=== PATIENT | female | born 1995 | race African-American/Black ===

== ENCOUNTER 2018-04-16 23:22 | Inpatient (IN) ==
[2018-04-17 00:03] LABS: Apearance,Urine CLEAR (Clear); Bacteria,Urine Occasional /HPF (Few); Bilirubin,Urine Negative (Negative); Blood, Urine Small mg/dL (Negative); Glucose,Urine (UA) Negative (Negative); Ketones,Urine Negative (Negative); Mucus,Urine Occasional /LPF (Occasional); Nitrite,Urine Negative (Negative); Protein,Urine Negative; RBC,Urine <1 /HPF (0-4); Squamous Epithelial Cell,Urine Occasional /HPF (0-10); Urine Color Yellow (Yellow); Urine Specific Gravity 1.013 (1.001-1.035); Urine Urobilinogen < 2.0 EU/DL (0.2-1.0); WBC,Urine 1 /HPF (0-6)
[2018-04-17] MEDS ORDERED: BUTORPHANOL 2 MG/ML VIAL IM ONE (00:35)
[2018-04-17] MEDS ORDERED: PROMETHAZINE 25 MG/1 ML VIAL IM ONE (00:35)
[2018-04-17] MEDS ORDERED: MEPERIDINE 50 MG/1 ML VIAL IV PRN (06:33)
[2018-04-17] MEDS ORDERED: ONDANSETRON 4 MG/2 ML VIAL IV PRN (06:33)
[2018-04-17] MEDS ORDERED: BUTORPHANOL 2 MG/ML VIAL IV PRN (06:33)
[2018-04-17] MEDS ORDERED: OXYTOCIN/LR 20 UNIT/1,000 ML BAG IV SCH (07:00)
[2018-04-17] MEDS ORDERED: LACTATED RINGERS 1,000 ML IV SCH (07:00)
[2018-04-17 07:13] LABS: Basophils % 0.2 % (0.0-0.8); Eosinophils # 0.2 10*3/uL (0.0-0.87); Eosinophils % 1.5 % (0.00-10.9); Hematocrit 34.8 VOL% (35.7-47.0); Hemoglobin 10.6 GM/DL (12.0-16.0); Immature Granulocytes % 0.8 %; Immature Granulocytes Absolute 0.09 #; Lymphocytes # 1.8 10*3/uL (1.4-4.0); Mean Corpuscular HGB Conc 30.5 GM/DL (32-36); Mean Corpuscular Hemoglobin 25 PG (27-34); Mean Corpuscular Volume 80.4 FL (87-102); Mean Platelet Volume 10.2 FL (9.6-12.0); Monocytes % 8.9 % (1.7-12.7); Neutrophils # 8.1 10*3/uL (1.4-7.4); Neutrophils % 72.6 % (38.7-73.9); Platelet Count 285 T/CUMM (130-400); Red Blood Count 4.33 MC/CUMM (3.8-5.5); Red Cell Distribution Width 14.9 % (9.3-17.3); White Blood Count 11.1 T/CUMM (4-12)
[2018-04-17] MEDS ORDERED: NALOXONE 0.4 MG/ML VIAL IV PRN (07:27)
[2018-04-17] MEDS ORDERED: diphenhydrAMINE 50 MG/1 ML VIAL IV PRN ×2 (07:27)
[2018-04-17] MEDS ORDERED: hydrOXYzine HCL 25 MG/1 ML VIAL IM PRN (07:27)
[2018-04-17] MEDS ORDERED: ePHEDrine 50 MG/ML AMP IV PRN (07:27)
[2018-04-17] MEDS ORDERED: LACTATED RINGERS 1,000 ML IV ONE (07:29)
[2018-04-17] MEDS ORDERED: FAMOTIDINE 20 MG/2 ML VIAL IV ONE (07:29)
[2018-04-17] MEDS ORDERED: CITRIC ACID/SODIUM CITRATE 30 ML UDCUP PO ONE (07:29)
[2018-04-17] MEDS ORDERED: PENICILLIN G POTASSIUM INJ 5,000,000 UNIT in SODIUM CHLORIDE 0.9% 100 ML IV ONE (07:30)
[2018-04-17 07:35] LABS: Alanine Aminotransferase 12 U/L (13-56); Albumin 2.5 G/DL (3.4-5.0); Alkaline Phosphatase 132 U/L (45-117); Aspartate Amino Transferase 13 U/L (0-37); Bilirubin,Total < 0.39 MG/DL (0.2-1.0); Blood Urea Nitrogen 6 MG/DL (7-18); Calcium 9.1 MG/DL (8.5-10.1); Glucose 98 MG/DL (74-106); Osmolality,Calculated 270.8 MOS/KG (273-304); Sodium 137 MMOL/L (136-145); Total Protein 7.6 G/DL (6.4-8.3)
[2018-04-17 07:54] LABS: Hepatitis B Surface Ag Quant < 0.10 Index; Hepatitis B Surface Ag Result Negative (Negative)
[2018-04-17] MEDS: fentaNYL 2 MCG/ROPIV 0.2% EPID 100 ML EPIDURAL SCH ×2 (08:20→17:31)
[2018-04-17 08:23] LABS: HIV Antigen/Antibody Result Nonreactive (Nonreactive); Rubella Antibody IgG 110.4 IU/ML
[2018-04-17 11:16] LABS: Apearance,Urine CLEAR (Clear); Bilirubin,Urine Negative (Negative); Blood, Urine Small mg/dL (Negative); Glucose,Urine (UA) Negative (Negative); Ketones,Urine 5 mg/dL (Negative); Mucus,Urine Occasional /LPF (Occasional); Nitrite,Urine Negative (Negative); Protein,Urine Negative; RBC,Urine 1 /HPF (0-4); Urine Color Yellow (Yellow); Urine Specific Gravity 1.017 (1.001-1.035); Urine Urobilinogen < 2.0 EU/DL (0.2-1.0); WBC,Urine <1 /HPF (0-6)
[2018-04-17] MEDS ORDERED: PENICILLIN G POTASSIUM INJ 2,500,000 UNIT in SODIUM CHLORIDE 0.9% 100 ML IV SCH (12:00)
[2018-04-17] MEDS ORDERED: LIDOCAINE 1% 50 ML VIAL ONE (17:17)
[2018-04-17] MEDS ORDERED: miSOPROStol 200 MCG TABLET ONE (17:17)
[2018-04-17] MEDS ORDERED: METHYLERGONOVINE 0.2 MG/1 ML AMP ONE (17:18)
[2018-04-17] MEDS ORDERED: CARBOPROST TROMETHAMINE 250 MCG/ML AMP IM ONE (17:18)
[2018-04-17 18:12] LABS: Cord Arterial Blood HCO3 18.6 MMOL/L
[2018-04-17 18:15] LABS: Cord Venous Blood HCO3 21.2 MMOL/L; Cord Venous Blood PCO2 39.8 MMHG; Cord Venous Blood PO2 46.1
[2018-04-17] MEDS ORDERED: IBUPROFEN 800 MG TABLET PO ONE (20:29)
[2018-04-17] MEDS ORDERED: BENZOCAINE 20%/MENTHOL 0.5% SPRAY 56 GM CAN TOP PRN (22:47)
[2018-04-18] MEDS: ACETAMINOPHEN/CODEINE 300-30 MG TABLET PO PRN ×2 (00:01→17:43)
[2018-04-18 05:45] LABS: Basophils % 0.2 % (0.0-0.8); Eosinophils # 0.1 10*3/uL (0.0-0.87); Hemoglobin 9.9 GM/DL (12.0-16.0); Immature Granulocytes % 0.6 %; Immature Granulocytes Absolute 0.08 #; Lymphocytes # 1.9 10*3/uL (1.4-4.0); Lymphocytes % 13.9 % (21.3-54.2); Mean Corpuscular HGB Conc 30.9 GM/DL (32-36); Mean Corpuscular Hemoglobin 25 PG (27-34); Mean Platelet Volume 10.3 FL (9.6-12.0); Monocytes # 1.6 10*3/uL (0.11-0.8); Monocytes % 12.1 % (1.7-12.7); Neutrophils # 9.6 10*3/uL (1.4-7.4); Neutrophils % 72.2 % (38.7-73.9); Platelet Count 249 T/CUMM (130-400); Red Cell Distribution Width 14.7 % (9.3-17.3); White Blood Count 13.3 T/CUMM (4-12)
[2018-04-18] MEDS: DOCUSATE SODIUM 100 MG CAPSULE PO SCH ×2 (08:12→20:59)
[2018-04-18] MEDS: IBUPROFEN 800 MG TABLET PO PRN ×2 (11:51→22:02)
[2018-04-18] MEDS ORDERED: ALUMINUM/MAGNES/SIMETH MAX STR 30 ML UDCUP PO PRN (18:41)
[2018-04-19] MEDS ORDERED: PHENOL 1.4% THROAT SPRAY 177 ML BOTTLE PO PRN (01:44)
[2018-04-19] MEDS: BENZOCAINE/MENTHOL LOZENGE 18/BOX PO PRN ×2 (01:55→04:33)
[2018-04-19] MEDS ORDERED: DIPH/TET/ACEL PERT BOOSTER VACCINE 0.5 ML VIAL IM ONE (08:03)
[2018-04-19] MEDS ORDERED: INFLUENZA VIRUS VACCINE 0.5 ML SYRINGE IM ONE (08:04)
[2018-04-19] MEDS: DOCUSATE SODIUM 100 MG CAPSULE PO SCH (08:10)
[2018-04-19 08:29] VITALS: BP 107/58
== END 2018-04-19 13:05 | disposition home or self-care (01) | DRG 560 ==
LOC: N.LDOUT 23:22 → N.LD 23:26 → N.OB 04-17 22:06
PROVIDERS: ADMIT Obstetrics & Gynecology; ATTEND Obstetrics & Gynecology

== ENCOUNTER 2019-12-06 04:52 | Inpatient (IN) ==
[2019-12-06] MEDS ORDERED: LACTATED RINGERS 1,000 ML IV ONE ×2 (05:01→11:03)
[2019-12-06] MEDS ORDERED: ONDANSETRON 4 MG/2 ML VIAL IV PRN (05:01)
[2019-12-06] MEDS ORDERED: AMPICILLIN INJ 2,000 MG in SODIUM CHLORIDE 0.9% 100 ML IV ONE (05:03)
[2019-12-06] MEDS: LACTATED RINGERS 1,000 ML IV SCH ×2 (05:28→16:47)
[2019-12-06] MEDS: OXYTOCIN/LR 20 UNIT/1,000 ML BAG IV SCH (06:08)
[2019-12-06 06:11] LABS: Basophils % 0.3 % (0.0-0.8); Eosinophils # 0.1 10*3/uL (0.0-0.87); Eosinophils % 1.2 % (0.00-10.9); Hematocrit 32.2 VOL% (35.7-47.0); Hemoglobin 9.8 GM/DL (12.0-16.0); Immature Granulocytes % 0.6 %; Immature Granulocytes Absolute 0.07 #; Lymphocytes # 1.6 10*3/uL (1.4-4.0); Lymphocytes % 14.3 % (21.3-54.2); Mean Corpuscular HGB Conc 30.4 GM/DL (32-36); Mean Corpuscular Volume 76.5 FL (87-102); Mean Platelet Volume 10.5 FL (9.6-12.0); Monocytes % 9.7 % (1.7-12.7); Neutrophils % 73.9 % (38.7-73.9); Platelet Count 262 T/CUMM (130-400); Red Blood Count 4.21 MC/CUMM (3.8-5.5); White Blood Count 11.3 T/CUMM (4-12)
[2019-12-06 06:29] LABS: Alanine Aminotransferase 11 U/L (13-56); Albumin 2.4 G/DL (3.4-5.0); Alkaline Phosphatase 101 U/L (45-117); Aspartate Amino Transferase 12 U/L (0-37); Bilirubin,Total < 0.39 MG/DL (0.2-1.0); Blood Urea Nitrogen 7 MG/DL (7-18); Calcium 9.4 MG/DL (8.5-10.1); Estimated Glom Filtration Rate 239 ML/MIN; Glucose 88 MG/DL (74-106); Osmolality,Calculated 271.7 MOS/KG (273-304); Total Protein 7.1 G/DL (6.4-8.3)
[2019-12-06 06:35] LABS: Apearance,Urine Slightly Hazy (Clear); Bacteria,Urine Occasional /HPF (Few); Bilirubin,Urine Negative (Negative); Blood, Urine Small mg/dL (Negative); Glucose,Urine (UA) Negative (Negative); Ketones,Urine Negative (Negative); Mucus,Urine Occasional /LPF (Occasional); Nitrite,Urine Negative (Negative); Protein,Urine 30 MG/DL; RBC,Urine 2 /HPF (0-4); Renal Epithelial Cells,Urine Occasional /HPF (<1); Squamous Epithelial Cell,Urine Few /HPF (0-10); Urine Color Yellow (Yellow); Urine Urobilinogen < 2.0 EU/DL (0.2-1.0); WBC,Urine 6 /HPF (0-6)
[2019-12-06] MEDS: AMPICILLIN INJ 1,000 MG in SODIUM CHLORIDE 0.9% 100 ML IV SCH ×3 (10:21→18:48)
[2019-12-06] MEDS ORDERED: BUTORPHANOL 2 MG/ML VIAL IV PRN (10:49)
[2019-12-06] MEDS ORDERED: FAMOTIDINE 20 MG/2 ML VIAL IV ONE (11:03)
[2019-12-06] MEDS ORDERED: CITRIC ACID/SODIUM CITRATE 30 ML UDCUP PO ONE (11:03)
[2019-12-06] MEDS ORDERED: diphenhydrAMINE 50 MG/1 ML VIAL IV PRN ×2 (11:04)
[2019-12-06] MEDS ORDERED: hydrOXYzine HCL 25 MG/1 ML VIAL IM PRN (11:04)
[2019-12-06] MEDS ORDERED: NALOXONE 0.4 MG/ML VIAL IV PRN (11:04)
[2019-12-06] MEDS ORDERED: PROMETHAZINE 25 MG/1 ML VIAL IM ONE (11:04)
[2019-12-06] MEDS ORDERED: ePHEDrine 50 MG/ML VIAL IV PRN (11:04)
[2019-12-06] MEDS: fentaNYL 2 MCG/ROPIV 0.2% EPID 100 ML EPIDURAL SCH ×2 (12:22→21:22)
[2019-12-06 15:03] LABS: Apearance,Urine CLEAR (Clear); Bilirubin,Urine Negative (Negative); Blood, Urine Negative (Negative); Glucose,Urine (UA) Negative (Negative); Ketones,Urine 20 mg/dL (Negative); Mucus,Urine Occasional /LPF (Occasional); Nitrite,Urine Negative (Negative); Protein,Urine Negative; RBC,Urine 1 /HPF (0-4); Urine Color Yellow (Yellow); Urine Specific Gravity 1.025 (1.001-1.035); Urine Urobilinogen < 2.0 EU/DL (0.2-1.0); WBC,Urine <1 /HPF (0-6)
[2019-12-06] MEDS ORDERED: LIDOCAINE 1% 50 ML VIAL ONE (21:49)
[2019-12-06 22:10] LABS: Cord Venous Blood HCO3 22.1 MMOL/L; Cord Venous Blood PCO2 36.1 MMHG; Cord Venous Blood PO2 40.2
[2019-12-06] MEDS ORDERED: MAGNESIUM HYDROXIDE SUSP 30 ML UDCUP PO PRN (22:50)
[2019-12-06] MEDS ORDERED: BISACODYL 10 MG SUPP RECTAL PRN (22:50)
[2019-12-06] MEDS ORDERED: LACTATED RINGERS 1,000 ML IV SCH (23:00)
[2019-12-06] MEDS ORDERED: ACETAMINOPHEN 500 MG TABLET PO PRN (23:00)
[2019-12-07] MEDS: OXYTOCIN/LR 20 UNIT/1,000 ML BAG IV SCH (00:17)
[2019-12-07] MEDS ORDERED: BENZOCAINE 20%/MENTHOL 0.5% SPRAY 56 GM CAN TOP PRN (01:06)
[2019-12-07] MEDS: IBUPROFEN 800 MG TABLET PO PRN ×3 (01:08→19:01)
[2019-12-07 06:16] LABS: Basophils # 0.1 10*3/uL (0.0-0.2); Basophils % 0.3 % (0.0-0.8); Eosinophils % 0.1 % (0.00-10.9); Hematocrit 31.8 VOL% (35.7-47.0); Hemoglobin 9.5 GM/DL (12.0-16.0); Immature Granulocytes % 0.7 %; Immature Granulocytes Absolute 0.11 #; Lymphocytes # 1.7 10*3/uL (1.4-4.0); Lymphocytes % 10.9 % (21.3-54.2); Mean Corpuscular HGB Conc 29.9 GM/DL (32-36); Mean Corpuscular Volume 77.8 FL (87-102); Mean Platelet Volume 10.2 FL (9.6-12.0); Monocytes % 9.8 % (1.7-12.7); Neutrophils % 78.2 % (38.7-73.9); Platelet Count 252 T/CUMM (130-400); Red Blood Count 4.09 MC/CUMM (3.8-5.5); Red Cell Distribution Width 15.9 % (9.3-17.3); White Blood Count 15.7 T/CUMM (4-12)
[2019-12-07] MEDS: MULTIVITAMIN (PRENATAL) TABLET PO SCH (09:06)
[2019-12-07] MEDS: DOCUSATE SODIUM 100 MG CAPSULE PO SCH ×2 (09:06→20:24)
[2019-12-08] MEDS: ALUMINUM/MAGNES/SIMETH MAX STR 30 ML UDCUP PO PRN ×2 (01:28→10:00)
[2019-12-08] MEDS: IBUPROFEN 800 MG TABLET PO PRN ×2 (04:02→11:52)
[2019-12-08 08:10] VITALS: BP 119/82
[2019-12-08] MEDS: MULTIVITAMIN (PRENATAL) TABLET PO SCH (08:57)
[2019-12-08] MEDS: DOCUSATE SODIUM 100 MG CAPSULE PO SCH (08:57)
== END 2019-12-08 12:30 | disposition home or self-care (01) | DRG 560 ==
LOC: N.LDOUT 04:52 → N.LD 04:55 → N.OB 12-07 00:52
PROVIDERS: ADMIT Obstetrics & Gynecology; ATTEND Obstetrics & Gynecology

== ENCOUNTER 2021-06-16 20:18 | Observation (INO) ==
[2021-06-16] MEDS ORDERED: MORPHINE 2 MG/1 ML SYRINGE IM STA (21:44)
[2021-06-16] MEDS ORDERED: ONDANSETRON 4 MG/2 ML VIAL IM STA (21:44)
[2021-06-16 22:32] LABS: Basophils % 0.3 % (0.0-0.8); Eosinophils # 0.2 10*3/uL (0.0-0.87); Eosinophils % 1.7 % (0.00-10.9); Hematocrit 36.7 VOL% (35.7-47.0); Hemoglobin 11.8 GM/DL (12.0-16.0); Immature Granulocytes % 0.5 %; Immature Granulocytes Absolute 0.07 #; Lymphocytes # 3.9 10*3/uL (1.4-4.0); Lymphocytes % 26.9 % (21.3-54.2); Mean Corpuscular HGB Conc 32.2 GM/DL (32-36); Mean Corpuscular Volume 80.5 FL (87-102); Mean Platelet Volume 9.5 FL (9.6-12.0); Monocytes % 7.8 % (1.7-12.7); Neutrophils % 62.8 % (38.7-73.9); Platelet Count 394 T/CUMM (130-400); Red Blood Count 4.56 MC/CUMM (3.8-5.5); Red Cell Distribution Width 14.1 % (9.3-17.3); White Blood Count 14.4 T/CUMM (4-12)
[2021-06-16] MEDS ORDERED: SUCCINYLCHOLINE 200 MG/10 ML VIAL ONE (22:37)
[2021-06-16] MEDS ORDERED: LIDOCAINE 2% 5 ML VIAL ONE (22:37)
[2021-06-16] MEDS ORDERED: MIDAZOLAM 2 MG/2 ML VIAL ONE (22:37)
[2021-06-16] MEDS ORDERED: ROCURONIUM 50 MG/5 ML VIAL IV ONE (22:37)
[2021-06-16] MEDS ORDERED: DEXAMETHASONE 4 MG/1 ML VIAL ONE ×5 (22:37→23:34)
[2021-06-16] MEDS ORDERED: SEVOFLURANE 1 UNIT/15 MINUTE INH ONE (22:37)
[2021-06-16] MEDS ORDERED: propofoL 200 MG/20 ML VIAL IV ONE ×2 (22:37→22:40)
[2021-06-16] MEDS ORDERED: ONDANSETRON 4 MG/2 ML VIAL ONE (22:37)
[2021-06-16] MEDS ORDERED: fentaNYL 100 MCG/2 ML VIAL ONE (22:38)
[2021-06-16 22:43] LABS: INR 1.1; PT Patient Result 11.8 SECS (10.5-12.0); Partial Thromboplastin Time 27.5 SECS (23.8-32.1)
[2021-06-16] MEDS ORDERED: ALBUTEROL/IPRATROPIUM 3 ML NEB RESP TX STA (22:43)
[2021-06-16] MEDS ORDERED: ACETAMINOPHEN INJ 1,000 MG/100 ML VIAL IV ONE (22:48)
[2021-06-16] MEDS ORDERED: PHENYLEPHRINE 1 MG/10 ML SYRINGE IV ONE (23:34)
[2021-06-16] MEDS ORDERED: SUGAMMADEX 200 MG/2 ML VIAL IV ONE (23:36)
[2021-06-16] MEDS ORDERED: LACTATED RINGERS 1,000 ML IV SCH (23:45)
[2021-06-16] MEDS ORDERED: ONDANSETRON 4 MG/2 ML VIAL IV PRN (23:46)
[2021-06-16] MEDS ORDERED: LACTATED RINGERS 1,000 ML IV ONE (23:59)
[2021-06-17] MEDS ORDERED: LIDOCAINE 2% 5 ML VIAL ONE
[2021-06-17] MEDS: HYDROmorphone 2 MG/1 ML VIAL IV PRN ×2 (00:05→00:10)
[2021-06-17] MEDS: HYDROcod/ACETAMIN 7.5-325 MG/15 ML UDCUP PO PRN ×3 (03:56→12:09)
[2021-06-17 11:42] VITALS: BP 118/56
== END 2021-06-17 15:35 | disposition home or self-care (01) ==
LOC: N.ED 20:18 → N.EDINP 20:18 → N.3E 06-17 00:50
PROVIDERS: ADMIT Otolaryngology; ATTEND Otolaryngology